=== PATIENT | male | born 1960 | race Caucasian/White ===

== ENCOUNTER 2020-11-23 11:19 | Day surgery (SDC) | payer BC ==
[2020-11-23] VITALS (8 sets, daily range): BP systolic 114–145; BP diastolic 63–80
[~2020-11-23] VITALS: Ht 177.8 cm; Wt 88.5 kg
[2020-11-23] MEDS ORDERED: normal saline 1,000 ML IV SCH (11:50)
[2020-11-23] MEDS ORDERED: diphenhydrAMINE 25mg capsule PO PRN (11:50)
[2020-11-23 12:23] LABS: ANION GAP 8 (8-16); BLOOD UREA NITROGEN 20 MG/DL (7-18); BUN/CREATININE RATIO 19.8 (5.4-32.0); CALCIUM 9.1 MG/DL (8.5-10.1); CHLORIDE 105 MMOL/L (99-107); CREATININE 1.01 MG/DL (0.60-1.10); GLUCOSE 183 MG/DL (70-104); MAGNESIUM 2.3 MG/DL (1.5-2.4); POTASSIUM 4.2 MMOL/L (3.5-5.1); SODIUM 140 MMOL/L (135-145); TOTAL CARBON DIOXIDE 27.3 MMOL/L (24-32); eGFR 75 ML/MIN
[2020-11-23] MEDS ORDERED: CLOP75TA34 PO (12:27)
[2020-11-23] MEDS ORDERED: INSU100V9 SUBCUT (12:27)
[2020-11-23] MEDS ORDERED: INSU100V11 SUBCUT (12:27)
[2020-11-23] MEDS ORDERED: ROSU40TA22 PO (12:27)
[2020-11-23] MEDS ORDERED: AMLO5TAB16 PO (12:27)
[2020-11-23] MEDS ORDERED: LOSA50TA64 PO (12:27)
[2020-11-23] MEDS ORDERED: SPIR25TA5 PO (12:27)
[2020-11-23] MEDS ORDERED: ASPI-1265 PO (12:29)
[2020-11-23] MEDS ORDERED: NIA500ERT PO (12:29)
[2020-11-23 12:39] LABS: BASOPHILS % (AUTO) 0.8 % (0-1); EOSINOPHILS # (AUTO) 0.1 X10'3 (0-0.9); EOSINOPHILS % (AUTO) 1.8 % (0-6); HEMATOCRIT 45.6 % (42.0-52.0); HEMOGLOBIN 15.5 g/dl (14.0-17.9); LYMPHOCYTES # (AUTO) 1.3 X10'3 (1.1-4.8); LYMPHOCYTES % (AUTO) 22.6 % (21-51); MEAN CORPUSCULAR HEMOGLOBIN 31.5 PG (27.0-31.0); MEAN CORPUSCULAR HGB CONC 34.1 g/dL (33.0-36.5); MEAN CORPUSCULAR VOLUME 92.4 FL (78-98); MEAN PLATELET VOLUME 7.7 FL (7.4-10.4); MONOCYTES # (AUTO) 0.7 X10'3 (0-0.9); MONOCYTES % (AUTO) 11.9 % (2-12); NEUTROPHILS # (AUTO) 3.6 X10'3 (1.8-7.7); NEUTROPHILS % (AUTO) 62.9 % (42-75); PLATELET COUNT 277 X10'3 (140-440); RED BLOOD COUNT 4.93 X10'6 (4.70-6.10); RED CELL DISTRIBUTION WIDTH 12.4 % (11.5-14.5); WHITE BLOOD COUNT 5.7 X10'3 (4.5-11.0)
[2020-11-23] MEDS ORDERED: midazolam 1 mg/ML 2ml injection ONE ×2 (14:27→14:51)
[2020-11-23] MEDS ORDERED: fentaNYL/PF 50MCG/1 ML 2ML syringe ONE (14:27)
[2020-11-23] MEDS ORDERED: iohexol 350MG/ML 100ml bottle IV ONE (14:28)
[2020-11-23] MEDS ORDERED: iohexol 350 MG/ML 50ML vial IV ONE (14:28)
[2020-11-23] MEDS ORDERED: heparin 1,000unit/ml 10ml vial 10 ML ONE (14:28)
[2020-11-23] MEDS ORDERED: LIDOcaine 1% (10mg/ml)w/preservative injection 20ml MDV ONE (14:28)
[2020-11-23] MEDS ORDERED: acetaminophen 325mg tablet PO PRN (16:10)
[2020-11-23] MEDS ORDERED: ondansetron/PF 4mg/2ml inj IV PRN (16:10)
[2020-11-23] MEDS ORDERED: proCHLORperazine 10 MG/2 ml inj IV PRN (16:10)
[2020-11-23] MEDS ORDERED: HYDROcodone/acetaminophen 5mg/325mg tablet PO PRN (16:10)
[2020-11-23] MEDS ORDERED: HYDROcodone/acetaminophen 10/325mg tab PO PRN (16:10)
[2020-11-23] MEDS ORDERED: normal saline 1000ml 1,000 ML IV SCH (16:10)
== END 2020-11-23 18:50 | disposition home or self-care (01) ==
LOC: SSTAY O 11:19
PROVIDERS: ATTEND Internal Medicine Cardiovascular Disease
DX: R94.39 Abnormal result of other cardiovascular function study (principal); R07.9 Chest pain, unspecified; I25.10 Atherosclerotic heart disease of native coronary artery without angina pectoris; E10.9 Type 1 diabetes mellitus without complications; I10 Essential (primary) hypertension; E78.49 Other hyperlipidemia; I27.20 Pulmonary hypertension, unspecified; Z98.890 Other specified postprocedural states; Z79.899 Other long term (current) drug therapy; Z72.89 Other problems related to lifestyle; Z79.01 Long term (current) use of anticoagulants; Z79.4 Long term (current) use of insulin; Z79.82 Long term (current) use of aspirin; Z95.5 Presence of coronary angioplasty implant and graft; Z82.49 Family history of ischemic heart disease and other diseases of the circulatory system
CPT/HCPCS: 36415; 80048; 82948; 83735; 85025; 85610; 93005; 93458; 99152; 99153; C1760; C1769; C1894; J1644; J2001; J2250; J3010; Q0163; Q9967; A4620; A6258

== ENCOUNTER 2020-12-17 08:00 | Inpatient (IN) | payer BC ==
[2020-12-11 16:02] LABS: CLARITY,URINE CLEAR (Clear); COLOR,URINE STRAW (Yellow); GLUCOSE, URINE 250 mg/dl (Neg); LEUKOCYTE ESTERASE ,URINE NEGATIVE (Neg); NITRITES, URINE NEGATIVE (Neg); OCCULT BLOOD,URINE NEGATIVE (Neg); PROTEIN,URINE TRACE mg/dl (Neg); UA COLLECTION TYPE CLN CATCH MIDSTREAM; UROBILINOGEN,URINE 0.2 E.U/dL (0.2-1.0)
[2020-12-11 16:03] LABS: KETONES,URINE 15 mg/dl (Neg)
[2020-12-11 16:06] LABS: BACTERIA,URINE NONE SEEN /HPF (Neg); MUCUS STRANDS NONE SEEN /LPF (Neg); RBC,URINE NONE SEEN /HPF (0-2); SQUAMOUS EPITHELIAL CELL,UR FEW /LPF (FEW); WBC,URINE NONE SEEN /HPF (0-4)
[2020-12-11 16:09] LABS: BASOPHILS % (AUTO) 0.6 % (0-1); EOSINOPHILS # (AUTO) 0.1 X10'3 (0-0.9); EOSINOPHILS % (AUTO) 1.4 % (0-6); LYMPHOCYTES # (AUTO) 1.4 X10'3 (1.1-4.8); MEAN CORPUSCULAR HEMOGLOBIN 32.2 PG (27.0-31.0); MEAN CORPUSCULAR HGB CONC 35.4 g/dL (33.0-36.5); MEAN CORPUSCULAR VOLUME 90.9 FL (78-98); MEAN PLATELET VOLUME 7.5 FL (7.4-10.4); MONOCYTES # (AUTO) 0.6 X10'3 (0-0.9); MONOCYTES % (AUTO) 8.3 % (2-12); NEUTROPHILS # (AUTO) 4.6 X10'3 (1.8-7.7); NEUTROPHILS % (AUTO) 68.7 % (42-75); PRE OP HEMATOCRIT 44.6 % (42.0-52.0); PRE OP HEMOGLOBIN 15.8 g/dL (14.0-17.9); PRE OP PLATELET COUNT 319 X10'3 (140-440); RED BLOOD COUNT 4.91 X10'6 (4.70-6.10); RED CELL DISTRIBUTION WIDTH 12.2 % (11.5-14.5)
[2020-12-11 16:14] LABS: ALBUMIN 4.3 G/DL (3.4-5.0); ALBUMIN/GLOBULIN RATIO 1.2 (1.1-1.5); ALKALINE PHOSPHATASE 69 IU/L (46-116); BLOOD UREA NITROGEN 16 MG/DL (7-18); BUN/CREATININE RATIO 16.5 (5.4-32.0); CALCIUM 9.1 MG/DL (8.5-10.1); CHLORIDE 102 MMOL/L (99-107); CREATININE 0.97 MG/DL (0.60-1.10); PRE OP ALT 69 U/L (30-65); PRE OP ANION GAP 11 (8-16); PRE OP AST 32 U/L (10-37); PRE OP BILIRUB, TOTAL 0.6 MG/DL (0.0-1.0); PRE OP POTASSIUM 4.1 MMOL/L (3.4-5.1); PRE OP SODIUM 140 MMOL/L (135-145); TOTAL CARBON DIOXIDE 27.5 MMOL/L (24-32); TOTAL PROTEIN 7.8 G/DL (6.4-8.2); eGFR 78 ML/MIN
[2020-12-11 16:15] LABS: PRE OP GLUCOSE 208 MG/DL (70-104)
[2020-12-11 16:27] LABS: HEMOGLOBIN A1C 9.4 % (4.5-6.2)
[2020-12-14 06:24] LABS: ABG BASE EXCESS -2.5 mmol/L (-2.0-2.0); ABG HCO3 21.5 mmol/L (22.0-26.0); ABG OXYGEN SATURATION 95.7 % (94-97); ABG PCO2 (T) 35.4 mmHg (35.0-48.0); ABG PO2 (T) 77.2 mmHg (75.0-100.0); ALLEN'S TEST POSITIVE; FCOHb 0.4 % (0.0-3.9); FMetHb 0.3 % (0.0-1.5); TOTAL HEMOGLOBIN 16.1 G/dl (14.0-18.0)
[2020-12-17] VITALS (8 sets, daily range): BP systolic 95–152; BP diastolic 44–75
[~2020-12-17] VITALS: Ht 177.8 cm; Wt 90.1 kg
[~2020-12-17 08:00] MED LIST: AMLO5TAB16 PO; ASPI-1265 PO; BUPIVAcaine 0.5% inj/PF 30 ML ONE; CLOP75TA34 PO; INSU100V11 SUBCUT; INSU100V9 SUBCUT; LIDOcaine 1% (10mg/ml) 2ml vial ONE; LOSA50TA64 PO; NIA500ERT PO; ROSU40TA22 PO; SPIR25TA5 PO; VANCOMYCIN 1,500MG inj. 1,500 MG in normal saline 500ml IV soln 300 ML IV ONE; ceFAZolin 1000mg inj ONE; cefazolin/dext.iso 2gm/50ml 50 ML IV ONE; epiNEPHrine 1 mg/ml inj ONE; famotidine 20mg tablet PO ONE; gabapentin 400mg capsule PO ONE; metoprolol tartrate 12.5mg (1/2 tablet) PO ONE; mupirocin 2% nasal ointment 1gm UD NS ONE; ringers solution, lacted 1,000 ML IV SCH
[2020-12-17] MEDS ORDERED: heparin 10,000 units/1 ML INJ ONE ×3 (09:00→15:30)
[2020-12-17] MEDS ORDERED: papaverine 30 mg/ml 2ml inj. ONE (09:00)
[2020-12-17] MEDS ORDERED: ceFAZolin 1000mg inj ONE (12:31)
[2020-12-17] MEDS ORDERED: epiNEPHrine 1 mg/ml inj ONE (12:31)
[2020-12-17] MEDS ORDERED: LORazepam 2 mg/ml vial ONE (12:32)
[2020-12-17] MEDS ORDERED: gabapentin 400mg capsule PO ONE (12:34)
[2020-12-17] MEDS ORDERED: metoprolol tartrate 12.5mg (1/2 tablet) PO ONE (12:34)
[2020-12-17] MEDS ORDERED: cefazolin/dext.iso 2gm/50ml 50 ML IV ONE (12:35)
[2020-12-17] MEDS ORDERED: mupirocin 2% nasal ointment 1gm UD NS ONE (12:35)
[2020-12-17] MEDS ORDERED: LORazepam 2 mg/ml vial IV PRN (12:39)
[2020-12-17] MEDS ORDERED: dextrose 50%-water 50ml dispensing syringe IV PRN ×2 (12:40→18:00)
[2020-12-17] MEDS ORDERED: VANCOMYCIN 1,500MG inj. 1,500 MG in normal saline 500ml IV soln 300 ML IV ONE (12:40)
[2020-12-17] MEDS ORDERED: Insulin Reg/NS 100units/100mL 100 ML IV SCH ×2 (12:56→18:00)
[2020-12-17] MEDS ORDERED: insulin regular, human 10 units/0.1 ml syringe IV ONE (13:00)
[2020-12-17] MEDS: Insulin Reg/NS 100units/100mL 100 ML IV SCH (13:08)
[2020-12-17] MEDS ORDERED: ipratropium/albuterol 3ml nebule IH PRN (13:55)
[2020-12-17] MEDS ORDERED: heparin 10,000 units/1 ML INJ IR ONE (14:00)
[2020-12-17] MEDS ORDERED: SUFENTANIL CITRATE 50 MCG/ML 2ml ampule IV ONE (14:11)
[2020-12-17] MEDS ORDERED: papaverine 30 mg/ml 2ml inj. IA ONE (14:30)
[2020-12-17] MEDS ORDERED: propofol inj 20 ML IV ONE (15:00)
[2020-12-17] MEDS ORDERED: LIDOcaine 2% (20mg/ml) 5ml vial ONE (15:00)
[2020-12-17 15:28] LABS: ABG BASE EXCESS -1.5 mmol/L (-2.0-2.0); ABG HCO3 20.5 mmol/L (22.0-26.0); ABG OXYGEN SATURATION 99.7 % (94-97); ABG PCO2 27.6 mmHg (35.0-48.0); ABG PO2 409.4 mmHg (75.0-100.0); CL (ABG) 105 mmol/L (98-110); FCOHb 0.6 % (0.0-3.9); FMetHb 0.3 % (0.0-1.5); FO2Hb 98.8 % (94-97); GLUCOSE (ABG) 121 mg/dl (70-105); IONIZED CA (ABG) 1.16 mmol/L (1.10-1.43); K (ABG) 3.9 mmol/L (3.5-5.0); TOTAL HEMOGLOBIN 13.6 G/dl (14.0-18.0)
[2020-12-17] MEDS ORDERED: albumin (human) 25% 100 ML IV solution IV ONE (15:30)
[2020-12-17] MEDS ORDERED: methylPREDNISolone sod succ 1000mg vial ONE (15:30)
[2020-12-17] MEDS ORDERED: NORepinephrine 8 MG in NS 250 ML BAG (32 mcg/ml) IV ONE (15:30)
[2020-12-17] MEDS ORDERED: sodium bicarbonate (8.4%) 1 mEq/ml syringe ONE (15:30)
[2020-12-17] MEDS ORDERED: calcium chloride 100 MG/1 ML inj IV ONE (15:30)
[2020-12-17] MEDS ORDERED: aminocaproic acid 250 MG/1 ML inj. ONE (15:30)
[2020-12-17] MEDS ORDERED: albumin (Human) 5% 250ml 250 ML IV ONE (15:57)
[2020-12-17] MEDS ORDERED: rocuronium 10mg/ml inj IV ONE ×2 (15:58)
[2020-12-17 16:11] LABS: ABG BASE EXCESS VENOUS 1.8 mmol/L (-2.0 - 2.0); ABG HCO3 VENOUS 26.2 mmol/L (21.0-28.0); ABG PCO2 VENOUS 40.1 mmHg (41.0-54.0); ABG PO2 VENOUS 40.4 mmHg (25.0-35.0); CL (ABG) 101 mmol/L (98-110); FCOHb VENOUS 0.3 %; FHHb VENOUS 22.5 %; FMetHb VENOUS 0.3 % (0.0 - 0.5); FO2Hb VENOUS 76.9 %; GLUCOSE (ABG) 90 mg/dl (70-105); IONIZED CA (ABG) 0.97 mmol/L (1.10-1.43); K (ABG) 3.5 mmol/L (3.5-5.0); TOTAL HEMOGLOBIN 9.6 G/dl (14.0-18.0)
[2020-12-17 16:16] LABS: ABG BASE EXCESS 3.2 mmol/L (-2.0-2.0); ABG HCO3 27.5 mmol/L (22.0-26.0); ABG OXYGEN SATURATION 99.2 % (94-97); ABG PCO2 41.1 mmHg (35.0-48.0); ABG PO2 396.6 mmHg (75.0-100.0); CL (ABG) 102 mmol/L (98-110); FCOHb 0.3 % (0.0-3.9); FMetHb 0.3 % (0.0-1.5); FO2Hb 98.6 % (94-97); GLUCOSE (ABG) 96 mg/dl (70-105); IONIZED CA (ABG) 1.01 mmol/L (1.10-1.43); K (ABG) 3.6 mmol/L (3.5-5.0); TOTAL HEMOGLOBIN 10.1 G/dl (14.0-18.0)
[2020-12-17 16:43] LABS: ABG BASE EXCESS 0.8 mmol/L (-2.0-2.0); ABG HCO3 25.9 mmol/L (22.0-26.0); ABG OXYGEN SATURATION 99.1 % (94-97); ABG PCO2 43.3 mmHg (35.0-48.0); CL (ABG) 103 mmol/L (98-110); FCOHb 0.1 % (0.0-3.9); FMetHb 0.3 % (0.0-1.5); FO2Hb 98.7 % (94-97); GLUCOSE (ABG) 90 mg/dl (70-105); IONIZED CA (ABG) 1.11 mmol/L (1.10-1.43); K (ABG) 3.9 mmol/L (3.5-5.0); TOTAL HEMOGLOBIN 11.3 G/dl (14.0-18.0)
[2020-12-17 17:12] LABS: ABG BASE EXCESS 2.5 mmol/L (-2.0-2.0); ABG HCO3 27.3 mmol/L (22.0-26.0); ABG OXYGEN SATURATION 98.9 % (94-97); ABG PCO2 43.2 mmHg (35.0-48.0); CL (ABG) 101 mmol/L (98-110); FCOHb 0.3 % (0.0-3.9); FMetHb 0.3 % (0.0-1.5); FO2Hb 98.3 % (94-97); GLUCOSE (ABG) 83 mg/dl (70-105); IONIZED CA (ABG) 1.06 mmol/L (1.10-1.43); K (ABG) 3.6 mmol/L (3.5-5.0); TOTAL HEMOGLOBIN 10.7 G/dl (14.0-18.0)
[2020-12-17 17:53] LABS: ABG BASE EXCESS VENOUS 0.8 mmol/L (-2.0 - 2.0); ABG HCO3 VENOUS 23.4 mmol/L (21.0-28.0); ABG PCO2 VENOUS 31.1 mmHg (41.0-54.0); CL (ABG) 105 mmol/L (98-110); FCOHb VENOUS 0.3 %; FMetHb VENOUS 0.3 % (0.0 - 0.5); FO2Hb VENOUS 97.4 %; GLUCOSE (ABG) 80 mg/dl (70-105); IONIZED CA (ABG) 1.21 mmol/L (1.10-1.43); K (ABG) 3.6 mmol/L (3.5-5.0); TOTAL HEMOGLOBIN 11.2 G/dl (14.0-18.0)
[2020-12-17 17:56] LABS: ACTIVATED CLOTTING TIME 126 SEC (101-148)
[2020-12-17] MEDS ORDERED: bisacodyl 10mg suppository rectal RC PRN (18:00)
[2020-12-17] MEDS ORDERED: mineral oil 133ml enema RC PRN (18:00)
[2020-12-17] MEDS ORDERED: HYDROcodone/acetaminophen 10/325mg tab PO PRN (18:00)
[2020-12-17] MEDS ORDERED: magnesium 4gm in 100ml NS 100 ML IV PRN (18:00)
[2020-12-17] MEDS ORDERED: morphine 4 MG/ML inj SYRINge IV PRN ×2 (18:00)
[2020-12-17] MEDS ORDERED: Neutra Phos packet PO PRN (18:00)
[2020-12-17] MEDS ORDERED: potassium Cl 40MEQ/1/2NS 520ml 520 ML IV PRN (18:00)
[2020-12-17] MEDS ORDERED: sodium phosphate inj. 15 MMOL in dextrose 5%-water 250 ML IV PRN (18:00)
[2020-12-17] MEDS ORDERED: potassium Cl 20 mEq SR tablet PO PRN (18:00)
[2020-12-17] MEDS ORDERED: potassium Cl 40MEQ/250ML bag 250 ML IV PRN (18:00)
[2020-12-17] MEDS ORDERED: magnesium hydroxide 30ml (MOM) UD suspension PO PRN (18:00)
[2020-12-17] MEDS: sodium chloride 0.45% 1,000 ML IV SCH (18:00)
[2020-12-17] MEDS ORDERED: nitroGLYCERIN-Tridil 50MG/D5W 250 ML IV SCH (18:00)
[2020-12-17] MEDS ORDERED: NORepinephrine 8mg/ 250ml NS 250 ML IV PRN (18:00)
[2020-12-17] MEDS ORDERED: ondansetron/PF 4mg/2ml inj IV PRN (18:00)
[2020-12-17] MEDS ORDERED: acetaminophen 325mg tablet PO PRN ×2 (18:00)
[2020-12-17] MEDS ORDERED: sodium phosphate inj. 30 MMOL in dextrose 5%-water 250 ML IV PRN (18:00)
[2020-12-17] MEDS ORDERED: pantoprazole 40 MG vial IV ONE (18:00)
[2020-12-17] MEDS ORDERED: metoclopramide 5 mg/ml inj IV PRN (18:00)
[2020-12-17] MEDS ORDERED: insulin glargine (Lantus) pen - multi-dose SQ PRN (18:00)
[2020-12-17] MEDS ORDERED: potassium CL 10mEq/100ml bag 100 ML IV PRN (18:00)
[2020-12-17] MEDS ORDERED: magnesium 2GM in 50ml NS 50 ML IV PRN (18:00)
[2020-12-17] MEDS ORDERED: magnesium citrate 296ml oral solution PO PRN (18:00)
[2020-12-17] MEDS ORDERED: niCARDipine-NS 40mg/200ml IVPB 200 ML IV PRN (18:00)
[2020-12-17 18:49] LABS: ABG BASE EXCESS -0.6 mmol/L (-2.0-2.0); ABG HCO3 21.8 mmol/L (22.0-26.0); ABG OXYGEN SATURATION 98.6 % (94-97); ABG PCO2 (T) 27.6 mmHg (35.0-48.0); ABG PO2 (T) 212.4 mmHg (75.0-100.0); FCOHb 0.3 % (0.0-3.9); FMetHb 0.3 % (0.0-1.5); PATIENT TEMPERATURE 35.8; PEEP 5 cm H2O; RESPIRATORY RATE 12 b/min; TIDAL VOLUME 650 mL; TOTAL HEMOGLOBIN 11.7 G/dl (14.0-18.0)
[2020-12-17 18:54] LABS: WHITE BLOOD COUNT 9.6 X10'3 (4.5-11.0)
[2020-12-17 18:55] LABS: BASOPHILS % (AUTO) 0.2 % (0-1); EOSINOPHILS # (AUTO) 0.1 X10'3 (0-0.9); EOSINOPHILS % (AUTO) 0.7 % (0-6); HEMATOCRIT 31.1 % (42.0-52.0); LYMPHOCYTES # (AUTO) 0.6 X10'3 (1.1-4.8); LYMPHOCYTES % (AUTO) 5.9 % (21-51); MEAN CORPUSCULAR HGB CONC 35.5 g/dL (33.0-36.5); MEAN CORPUSCULAR VOLUME 90.1 FL (78-98); MEAN PLATELET VOLUME 7.7 FL (7.4-10.4); MONOCYTES # (AUTO) 0.5 X10'3 (0-0.9); MONOCYTES % (AUTO) 5.1 % (2-12); NEUTROPHILS # (AUTO) 8.4 X10'3 (1.8-7.7); NEUTROPHILS % (AUTO) 88.1 % (42-75); PLATELET COUNT 170 X10'3 (140-440); RED BLOOD COUNT 3.45 X10'6 (4.70-6.10)
[2020-12-17 18:58] LABS: ALANINE AMINOTRANSFERASE 43 U/L (12-78); ALBUMIN 2.9 G/DL (3.4-5.0); ALBUMIN/GLOBULIN RATIO 1.5 (1.1-1.5); ALKALINE PHOSPHATASE 38 IU/L (46-116); ANION GAP 7 (8-16); ASPARTATE AMINO TRANSFERASE 33 U/L (10-37); BILIRUBIN,TOTAL 0.5 MG/DL (0.1-1.0); BLOOD UREA NITROGEN 11 MG/DL (7-18); BUN/CREATININE RATIO 13.9 (5.4-32.0); CHLORIDE 110 MMOL/L (99-107); CREATININE 0.79 MG/DL (0.60-1.10); GLUCOSE 93 MG/DL (70-104); PHOSPHORUS 2.2 MG/DL (2.3-4.5); POTASSIUM 3.6 MMOL/L (3.5-5.1); SODIUM 142 MMOL/L (135-145); TOTAL CARBON DIOXIDE 25.2 MMOL/L (24-32); TOTAL PROTEIN 4.9 G/DL (6.4-8.2); eGFR > 90 ML/MIN
[2020-12-17] MEDS: albumin (Human) 5% 250ml 250 ML IV PRN ×3 (19:10→23:15)
[2020-12-17 19:47] LABS: PARTIAL THROMBOPLASTIN TIME 32 SECONDS (22-32)
[2020-12-17] MEDS: sennosides/docusate sodium tablet PO SCH (20:00)
[2020-12-17] MEDS: mupirocin 2% nasal ointment 1gm UD NS SCH (20:00)
[2020-12-17] MEDS: vancomycin/NS 1 GM ADD-VANTAGE 250 ML IV SCH (20:23)
[2020-12-17] MEDS: potassium Cl 20mEq/100mL bag 100 ML IV PRN ×2 (20:47→22:59)
[2020-12-17] MEDS: atorvastatin 10mg tablet PO SCH (21:00)
[2020-12-17] MEDS: gabapentin 300mg capsule PO SCH (21:00)
[2020-12-17] MEDS ORDERED: potassium phosphate inj 15 MMOL in normal saline 250ml IV soln 250 ML IV ONE (21:45)
[2020-12-17] MEDS ORDERED: potassium phosphate inj 30 MMOL in normal saline 500ml IV soln 500 ML IV ONE (21:45)
[2020-12-18] VITALS (25 sets, daily range): BP systolic 95–125; BP diastolic 39–63
[2020-12-18] MEDS: ceFAZolin/D5W- 1GM premix 50 ML IV SCH ×3 (00:12→15:56)
[2020-12-18 01:19] LABS: BASOPHILS % (AUTO) 0.1 % (0-1); EOSINOPHILS % (AUTO) 0 % (0-6); HEMATOCRIT 27.7 % (42.0-52.0); HEMOGLOBIN 9.8 g/dl (14.0-17.9); LYMPHOCYTES # (AUTO) 0.3 X10'3 (1.1-4.8); LYMPHOCYTES % (AUTO) 2.9 % (21-51); MEAN CORPUSCULAR HEMOGLOBIN 31.8 PG (27.0-31.0); MEAN CORPUSCULAR HGB CONC 35.2 g/dL (33.0-36.5); MEAN CORPUSCULAR VOLUME 90.4 FL (78-98); MEAN PLATELET VOLUME 7.8 FL (7.4-10.4); MONOCYTES # (AUTO) 0.4 X10'3 (0-0.9); MONOCYTES % (AUTO) 3.9 % (2-12); NEUTROPHILS # (AUTO) 8.9 X10'3 (1.8-7.7); NEUTROPHILS % (AUTO) 93.1 % (42-75); PLATELET COUNT 167 X10'3 (140-440); RED BLOOD COUNT 3.07 X10'6 (4.70-6.10); RED CELL DISTRIBUTION WIDTH 12.1 % (11.5-14.5); WHITE BLOOD COUNT 9.6 X10'3 (4.5-11.0)
[2020-12-18 01:31] LABS: PARTIAL THROMBOPLASTIN TIME 37 SECONDS (22-32)
[2020-12-18 01:33] LABS: ALANINE AMINOTRANSFERASE 42 U/L (12-78); ALBUMIN 3.5 G/DL (3.4-5.0); ALBUMIN/GLOBULIN RATIO 1.8 (1.1-1.5); ALKALINE PHOSPHATASE 32 IU/L (46-116); ANION GAP 7 (8-16); ASPARTATE AMINO TRANSFERASE 31 U/L (10-37); BILIRUBIN,TOTAL 0.7 MG/DL (0.1-1.0); BLOOD UREA NITROGEN 15 MG/DL (7-18); BUN/CREATININE RATIO 15.2 (5.4-32.0); CALCIUM 7.8 MG/DL (8.5-10.1); CHLORIDE 110 MMOL/L (99-107); CREATININE 0.99 MG/DL (0.60-1.10); GLUCOSE 183 MG/DL (70-104); PHOSPHORUS 4.4 MG/DL (2.3-4.5); POTASSIUM 4.4 MMOL/L (3.5-5.1); SODIUM 141 MMOL/L (135-145); TOTAL CARBON DIOXIDE 24.1 MMOL/L (24-32); TOTAL PROTEIN 5.4 G/DL (6.4-8.2); eGFR 77 ML/MIN
[2020-12-18 02:44] LABS: ABG BASE EXCESS -3.9 mmol/L (-2.0-2.0); ABG HCO3 20.4 mmol/L (22.0-26.0); ABG OXYGEN SATURATION 96.9 % (94-97); ABG PCO2 (T) 34.8 mmHg (35.0-48.0); FCOHb 0.2 % (0.0-3.9); FMetHb 0.3 % (0.0-1.5); FO2Hb 96.4 % (94-97); PATIENT TEMPERATURE 37.5; PEEP 5 cm H2O; TOTAL HEMOGLOBIN 10.6 G/dl (14.0-18.0)
[2020-12-18] MEDS: sodium chloride 0.45% 1,000 ML IV SCH (04:35)
[2020-12-18] MEDS: metoprolol tartrate 12.5mg (1/2 tablet) PO SCH ×2 (08:00→20:52)
[2020-12-18] MEDS: albumin (Human) 5% 250ml 250 ML IV PRN (08:13)
[2020-12-18] MEDS: vancomycin/NS 1 GM ADD-VANTAGE 250 ML IV SCH ×2 (08:16→20:51)
[2020-12-18] MEDS: gabapentin 300mg capsule PO SCH ×3 (08:18→20:51)
[2020-12-18] MEDS: HYDROcodone/acetaminophen 10/325mg tab PO PRN (08:18)
[2020-12-18] MEDS: aspirin 325mg tablet, delayed-release (Ecotrin) PO SCH (08:18)
[2020-12-18] MEDS: sennosides/docusate sodium tablet PO SCH ×2 (08:19→20:51)
[2020-12-18] MEDS: mupirocin 2% nasal ointment 1gm UD NS SCH ×2 (08:19→20:52)
[2020-12-18] MEDS: Insulin Reg/NS 100units/100mL 100 ML IV SCH (08:48)
[2020-12-18] MEDS: insulin glargine (Lantus) pen - multi-dose SQ SCH ×2 (09:17→20:58)
[2020-12-18] MEDS: insulin Lispro (HumaLOG) vial - multi-dose SQ PRN ×2 (09:19→12:54)
--- NOTE | 2020-12-18 11:42 | NUR ---
DM/CABG Consult: Pt hx T1DM A1C 9.4 s/p CABGx5 this admit. Noted on NCS diet PO meals pending. RD d/w RN regarding carb controlled diet addition if MD agreeable given hx. Pt would benefit from DM/CABG eds once more appropriate post-op. Addendum: 12/18/20 at [address] Amended: Links added.
--- NOTE | 2020-12-18 13:30 | NUR ---
Decreased urine output noted; Amos GRIMALDO notified; no new orders at this time. Encourage PO fluid intake.
[2020-12-18] MEDS: insulin Lispro (HumaLOG) vial - multi-dose SQ SCH (17:45)
--- NOTE | 2020-12-18 18:36 | NUR ---
Problems reprioritized. Patient report given, questions answered & plan of care reviewed with Yoselin WISEMAN.
[2020-12-18] MEDS: atorvastatin 10mg tablet PO SCH (20:51)
[2020-12-19] VITALS (20 sets, daily range): BP systolic 99–129; BP diastolic 44–75
[2020-12-19 03:53] LABS: BASOPHILS % (AUTO) 0.1 % (0-1); EOSINOPHILS % (AUTO) 0 % (0-6); HEMATOCRIT 26.6 % (42.0-52.0); HEMOGLOBIN 9.3 g/dl (14.0-17.9); LYMPHOCYTES # (AUTO) 0.4 X10'3 (1.1-4.8); LYMPHOCYTES % (AUTO) 4.1 % (21-51); MEAN CORPUSCULAR HEMOGLOBIN 32.4 PG (27.0-31.0); MEAN CORPUSCULAR VOLUME 92.5 FL (78-98); MEAN PLATELET VOLUME 8.9 FL (7.4-10.4); MONOCYTES # (AUTO) 1.1 X10'3 (0-0.9); MONOCYTES % (AUTO) 11.2 % (2-12); NEUTROPHILS # (AUTO) 8.7 X10'3 (1.8-7.7); NEUTROPHILS % (AUTO) 84.6 % (42-75); PLATELET COUNT 145 X10'3 (140-440); RED BLOOD COUNT 2.88 X10'6 (4.70-6.10); RED CELL DISTRIBUTION WIDTH 11.9 % (11.5-14.5); WHITE BLOOD COUNT 10.2 X10'3 (4.5-11.0)
[2020-12-19] MEDS: Insulin Reg/NS 100units/100mL 100 ML IV SCH (03:58)
[2020-12-19 04:48] LABS: ALBUMIN 3.5 G/DL (3.4-5.0); ANION GAP 7 (8-16); BLOOD UREA NITROGEN 27 MG/DL (7-18); BUN/CREATININE RATIO 27.6 (5.4-32.0); CALCIUM 7.9 MG/DL (8.5-10.1); CHLORIDE 106 MMOL/L (99-107); CREATININE 0.98 MG/DL (0.60-1.10); GLUCOSE 266 MG/DL (70-104); POTASSIUM 5.1 MMOL/L (3.5-5.1); SODIUM 138 MMOL/L (135-145); TOTAL CARBON DIOXIDE 24.8 MMOL/L (24-32); eGFR 78 ML/MIN
[2020-12-19] MEDS ORDERED: insulin Lispro (HumaLOG) vial - multi-dose SQ SCH (06:50)
[2020-12-19] MEDS ORDERED: potassium CL 10mEq/100ml bag 100 ML IV PRN (07:20)
[2020-12-19] MEDS ORDERED: magnesium 2GM in 50ml NS 50 ML IV PRN (07:20)
[2020-12-19] MEDS ORDERED: potassium Cl 40MEQ/250ML bag 250 ML IV PRN (07:20)
[2020-12-19] MEDS ORDERED: potassium Cl 20 mEq SR tablet PO PRN (07:20)
[2020-12-19] MEDS ORDERED: magnesium 4gm in 100ml NS 100 ML IV PRN (07:20)
[2020-12-19] MEDS ORDERED: potassium Cl 40MEQ/1/2NS 520ml 520 ML IV PRN (07:20)
[2020-12-19] MEDS ORDERED: potassium Cl 20mEq/100mL bag 100 ML IV PRN (07:20)
[2020-12-19 07:46] LABS: MAGNESIUM 2.4 MG/DL (1.5-2.4); PHOSPHORUS 3.9 MG/DL (2.3-4.5)
[2020-12-19] MEDS: ceFAZolin/D5W- 1GM premix 50 ML IV SCH ×2 (07:47)
[2020-12-19] MEDS: mupirocin 2% nasal ointment 1gm UD NS SCH (07:47)
[2020-12-19] MEDS: pantoprazole 40mg Tablet.DR PO SCH (07:48)
[2020-12-19] MEDS: aspirin 325mg tablet, delayed-release (Ecotrin) PO SCH (07:48)
[2020-12-19] MEDS: metoprolol tartrate 12.5mg (1/2 tablet) PO SCH ×2 (07:49→22:18)
[2020-12-19] MEDS: sennosides/docusate sodium tablet PO SCH ×2 (07:49→22:18)
[2020-12-19] MEDS: gabapentin 300mg capsule PO SCH ×2 (07:50→13:09)
[2020-12-19] MEDS: insulin Lispro (HumaLOG) vial - multi-dose SQ SCH ×2 (07:57→13:08)
[2020-12-19] MEDS: insulin glargine (Lantus) pen - multi-dose SQ SCH ×2 (07:57→22:16)
[2020-12-19] MEDS: potassium Cl 20 mEq SR tablet PO SCH ×2 (07:58→22:19)
[2020-12-19] MEDS: magnesium Cl slow-release 64mg tablet PO SCH ×2 (07:59→22:18)
[2020-12-19] MEDS ORDERED: furosemide 40mg/4ml inj IV ONE (10:25)
--- NOTE | 2020-12-19 12:00 | NUR ---
Patient was found very crooked in bed attempting to get up by himself. Patient was educated on sternal precautions and concern for the patient's safety. Patient stated an understanding and claims he will use his call light from now on.
--- NOTE | 2020-12-19 14:17 | NUR ---
Nutrition consult: Pt seen at bedside for written and verbal CABG and DM nutrition therapy educations. Pt states he sees an MD yearly for DM management and reports checking his BG levels frequently with "high" results. Pt states he takes his insulin per rx without difficulties. Pt denies questions at this time. RD contact information provided. Pt endorses a good appetite and states he is getting full from meals, pending meal documentation in EMR. Pt agrees to Reid smoothie BID to assist with wound healing, ONS to be sent pending physician approval in EMR. Pt denies food allergies or difficulty chewing/swallowing. LBM this afternoon per pt report. D/w RN recommendation for CHO controlled diet in view of A1c and BG levels throughout LOS. Will continue to follow. Addendum: 12/19/20 at [address] Amended: Links added.
--- NOTE | 2020-12-19 16:05 | NUR ---
Patient transferred to room 3021 via wheelchair with x1 RN and x1 PCT. Patient alert, oriented and in no apparent distress at time of transfer. Patient specific medications sent with patient along with patient's chart. Patient was placed on a tele monitor prior to transfer. Patient only has his cell phone with him and that was transferred with him.
[2020-12-19] MEDS: JUVEN Smoothie Arginine/Glut./Ca2+Bmb (Juven 19.3pkt) 240ml cup PO SCH (17:30)
--- NOTE | 2020-12-19 18:20 | NUR ---
Patient in room PCU 3021. I have received report from IVONE Dumont and had the opportunity to ask questions and assume patient care. Patient was found on the floor earlier, bed alarm was place. Redirect patient to use call light, demonstrate understanding. Safety measures and comfort maintained. Will continue to monitor.
--- NOTE | 2020-12-19 21:30 | NUR ---
Patient BG 38, alert, oriented, orange juice was given tolerated well. No s/s of hypoglycemia noted. Will recheck in 15 mins.
--- NOTE | 2020-12-19 21:45 | NUR ---
BG 48 at this time, no s/s of hypoglycemia noted, orange juice given again with a turkey sandwich, tolerated well. Will recheck in 10-15 mins. Will continue to monitor.
--- NOTE | 2020-12-19 21:58 | NUR ---
BG 96, no s/s of hypoglycemia noted. Patient didn't ateSupervisor made aware, no Humalog insulin given. 30 units of Lantus was given. Safety measures and comfort maintained. Will continue to monitor. Addendum: 12/20/20 at 0652 by Carol Travis RN Patient only ate 25% of his dinner.
[2020-12-19] MEDS: atorvastatin 10mg tablet PO SCH (22:18)
[2020-12-20 03:00] VITALS: BP 122/54
[2020-12-20 06:00] VITALS: BP 117/55
[2020-12-20 06:36] LABS: BASOPHILS % (AUTO) 0.2 % (0-1); EOSINOPHILS % (AUTO) 0 % (0-6); HEMATOCRIT 26.2 % (42.0-52.0); HEMOGLOBIN 9.2 g/dl (14.0-17.9); LYMPHOCYTES # (AUTO) 0.9 X10'3 (1.1-4.8); LYMPHOCYTES % (AUTO) 10.6 % (21-51); MEAN CORPUSCULAR HEMOGLOBIN 32.3 PG (27.0-31.0); MEAN CORPUSCULAR HGB CONC 35.1 g/dL (33.0-36.5); MEAN CORPUSCULAR VOLUME 91.9 FL (78-98); MONOCYTES # (AUTO) 1.4 X10'3 (0-0.9); MONOCYTES % (AUTO) 16.8 % (2-12); NEUTROPHILS # (AUTO) 6.2 X10'3 (1.8-7.7); NEUTROPHILS % (AUTO) 72.4 % (42-75); PLATELET COUNT 145 X10'3 (140-440); RED BLOOD COUNT 2.85 X10'6 (4.70-6.10); RED CELL DISTRIBUTION WIDTH 12.3 % (11.5-14.5); WHITE BLOOD COUNT 8.5 X10'3 (4.5-11.0)
--- NOTE | 2020-12-20 06:41 | NUR ---
Problems reprioritized. Patient report given, questions answered & plan of care reviewed with IVONE Valero.
--- NOTE | 2020-12-20 06:45 | NUR ---
Patient in room PCU 3021. I have received report from Carol WISEMAN, and had the opportunity to ask questions and assume patient care.
[2020-12-20 06:58] LABS: ALBUMIN 3.1 G/DL (3.4-5.0); ANION GAP 9 (8-16); BLOOD UREA NITROGEN 37 MG/DL (7-18); BUN/CREATININE RATIO 35.2 (5.4-32.0); CALCIUM 7.9 MG/DL (8.5-10.1); CHLORIDE 107 MMOL/L (99-107); CREATININE 1.05 MG/DL (0.60-1.10); GLUCOSE 230 MG/DL (70-104); POTASSIUM 4.2 MMOL/L (3.5-5.1); SODIUM 143 MMOL/L (135-145); TOTAL CARBON DIOXIDE 27.5 MMOL/L (24-32); eGFR 72 ML/MIN
[2020-12-20] MEDS: JUVEN Smoothie Arginine/Glut./Ca2+Bmb (Juven 19.3pkt) 240ml cup PO SCH ×2 (07:30→17:40)
[2020-12-20 07:35] LABS: TOTAL CELLS COUNTED 100
[2020-12-20 07:37] LABS: PLATELET ESTIMATE NORMAL
[2020-12-20] MEDS: magnesium Cl slow-release 64mg tablet PO SCH ×2 (08:13→20:22)
[2020-12-20] MEDS: metoprolol tartrate 12.5mg (1/2 tablet) PO SCH ×2 (08:13→20:33)
[2020-12-20] MEDS: sennosides/docusate sodium tablet PO SCH ×2 (08:15→20:22)
[2020-12-20] MEDS: potassium Cl 20 mEq SR tablet PO SCH ×2 (08:15→20:00)
[2020-12-20] MEDS: pantoprazole 40mg Tablet.DR PO SCH (08:15)
[2020-12-20] MEDS: insulin Lispro (HumaLOG) vial - multi-dose SQ SCH ×2 (08:41→19:39)
[2020-12-20] MEDS: clopidogrel 75mg tablet PO SCH (08:43)
[2020-12-20] MEDS: aspirin 81mg, enteric-coated 1 TAB TABLET.DR PO SCH (08:44)
[2020-12-20 11:00] VITALS: BP 118/55
[2020-12-20] MEDS ORDERED: HYDR-3972 PO (12:10)
[2020-12-20] MEDS ORDERED: LOP12.5T PO (12:10)
[2020-12-20 15:00] VITALS: BP 131/58
--- NOTE | 2020-12-20 18:12 | NUR ---
Problems reprioritized. Patient report given, questions answered & plan of care reviewed with Carol WISEMAN, patient stable at transfer of care.
--- NOTE | 2020-12-20 18:13 | NUR ---
[place] documentation: I have reviewed and agree with all interventions, assessments performed and documented by Lourdes WISEMAN.
--- NOTE | 2020-12-20 18:15 | NUR ---
[place] Medication Administration: For this medication-pass time frame, all medication were reviewed, dispensed, administered and documented per hospital policy by Lourdes WISEMAN.
[2020-12-20 19:00] VITALS: BP 130/62
[2020-12-20] MEDS: atorvastatin 10mg tablet PO SCH (20:22)
[2020-12-20] MEDS: insulin glargine (Lantus) pen - multi-dose SQ SCH (20:42)
[2020-12-20 23:00] VITALS: BP 118/54
--- NOTE | 2020-12-21 02:55 | NUR ---
Patient feeling lightheaded, checked BG 51, milk given tolerated well, no juice were available. Will recheck in 15 mins.
[2020-12-21 03:00] VITALS: BP 109/68
--- NOTE | 2020-12-21 03:10 | NUR ---
BG 69 milk and sandwich given, tolerated well, no more feeling lightheaded at this time. Will continue to monitor and recheck BG in 15 mins.
--- NOTE | 2020-12-21 03:25 | NUR ---
BG 82 at this time, no s/s of hypoglycemia noted. Call light within reach. Safety measures and comfort provided. Will continue to monitor.
[2020-12-21 06:00] VITALS: BP 145/69
--- NOTE | 2020-12-21 06:35 | NUR ---
Problems reprioritized. Patient report given, questions answered & plan of care reviewed with Lourdes.
--- NOTE | 2020-12-21 06:35 | NUR ---
Patient in room PCU 3021. I have received report from Carol WISEMAN and had the opportunity to ask questions and assume patient care.
[2020-12-21 07:12] LABS: BASOPHILS % (AUTO) 0.2 % (0-1); EOSINOPHILS % (AUTO) 0.5 % (0-6); HEMATOCRIT 26.3 % (42.0-52.0); HEMOGLOBIN 9.3 g/dl (14.0-17.9); LYMPHOCYTES # (AUTO) 0.9 X10'3 (1.1-4.8); LYMPHOCYTES % (AUTO) 9.8 % (21-51); MEAN CORPUSCULAR HEMOGLOBIN 32.4 PG (27.0-31.0); MEAN CORPUSCULAR HGB CONC 35.5 g/dL (33.0-36.5); MEAN CORPUSCULAR VOLUME 91.2 FL (78-98); MEAN PLATELET VOLUME 8.9 FL (7.4-10.4); MONOCYTES # (AUTO) 1.2 X10'3 (0-0.9); MONOCYTES % (AUTO) 13.8 % (2-12); NEUTROPHILS # (AUTO) 6.6 X10'3 (1.8-7.7); NEUTROPHILS % (AUTO) 75.7 % (42-75); PLATELET COUNT 167 X10'3 (140-440); RED BLOOD COUNT 2.88 X10'6 (4.70-6.10); RED CELL DISTRIBUTION WIDTH 12.1 % (11.5-14.5); WHITE BLOOD COUNT 8.7 X10'3 (4.5-11.0)
[2020-12-21] MEDS: JUVEN Smoothie Arginine/Glut./Ca2+Bmb (Juven 19.3pkt) 240ml cup PO SCH ×2 (07:30→18:00)
[2020-12-21 07:41] LABS: ALBUMIN 2.7 G/DL (3.4-5.0); ANION GAP 9 (8-16); BLOOD UREA NITROGEN 24 MG/DL (7-18); BUN/CREATININE RATIO 26.1 (5.4-32.0); CALCIUM 7.7 MG/DL (8.5-10.1); CHLORIDE 104 MMOL/L (99-107); CREATININE 0.92 MG/DL (0.60-1.10); GLUCOSE 319 MG/DL (70-104); POTASSIUM 4.5 MMOL/L (3.5-5.1); SODIUM 139 MMOL/L (135-145); TOTAL CARBON DIOXIDE 26.3 MMOL/L (24-32); eGFR 83 ML/MIN
[2020-12-21] MEDS: pantoprazole 40mg Tablet.DR PO SCH (08:01)
[2020-12-21] MEDS: aspirin 81mg, enteric-coated 1 TAB TABLET.DR PO SCH (08:01)
[2020-12-21] MEDS: metoprolol tartrate 12.5mg (1/2 tablet) PO SCH ×2 (08:01→19:19)
[2020-12-21] MEDS: sennosides/docusate sodium tablet PO SCH ×2 (08:01→19:19)
[2020-12-21] MEDS: magnesium Cl slow-release 64mg tablet PO SCH ×2 (08:01→19:19)
[2020-12-21] MEDS: clopidogrel 75mg tablet PO SCH (08:02)
[2020-12-21] MEDS: potassium Cl 20 mEq SR tablet PO SCH ×2 (08:02→19:19)
[2020-12-21 08:20] LABS: ACT @ 1.70 U 275 SEC (193-297); ACT @ 2.84 U 418 SEC (260-420); BASELINE ACT 145 SEC (101-148); PATIENT WEIGHT 88.0k KG
[2020-12-21] MEDS: insulin Lispro (HumaLOG) vial - multi-dose SQ SCH ×2 (08:49→13:47)
[2020-12-21 11:00] VITALS: BP 122/61
--- NOTE | 2020-12-21 12:01 | NUR ---
O2 Sat at rest on room air:_94__% If below 89%: Recovery O2 Sat at rest on ___LPM:___%:___% via (mask/nasal cannula, etc..) No further documentation is necessary. If O2 Sat did not drop below 89% on room air,ambulate patient on room air. O2 Sat while ambulating on room air:__93_% Recovery O2 Sat while ambulating on ___LPM:___% No further documentation is necessary. If patient does not drop below 89% while ambulating, he/she does not qualify for home O2.
--- NOTE | 2020-12-21 12:58 | NUR ---
AGREE WITH AM ASSESSMENT BY PATSY WISEMAN.
--- NOTE | 2020-12-21 15:46 | NUR ---
Patient in room PCU 3021. I have received report from Lourdes WISEMAN and had the opportunity to ask questions and assume patient care.
[2020-12-21 18:00] VITALS: BP 136/55
[2020-12-21] MEDS: HYDROcodone/acetaminophen 10/325mg tab PO PRN (19:19)
[2020-12-21] MEDS: atorvastatin 10mg tablet PO SCH (20:48)
[2020-12-21] MEDS: insulin glargine (Lantus) pen - multi-dose SQ SCH (21:15)
[2020-12-21 22:00] VITALS: BP 125/60
[2020-12-22 02:00] VITALS: BP 131/65
--- NOTE | 2020-12-22 06:00 | NUR ---
Patient in room PCU 3021. I have received report from IVONE Lisa and had the opportunity to ask questions and assume patient care.
[2020-12-22 06:02] LABS: ALBUMIN 2.9 G/DL (3.4-5.0); ANION GAP 6 (8-16); BASOPHILS % (AUTO) 0.3 % (0-1); BLOOD UREA NITROGEN 20 MG/DL (7-18); BUN/CREATININE RATIO 21.5 (5.4-32.0); CALCIUM 8.2 MG/DL (8.5-10.1); CHLORIDE 104 MMOL/L (99-107); CREATININE 0.93 MG/DL (0.60-1.10); EOSINOPHILS # (AUTO) 0.2 X10'3 (0-0.9); EOSINOPHILS % (AUTO) 2.3 % (0-6); GLUCOSE 215 MG/DL (70-104); HEMATOCRIT 27.6 % (42.0-52.0); HEMOGLOBIN 9.7 g/dl (14.0-17.9); LYMPHOCYTES % (AUTO) 14.2 % (21-51); MEAN CORPUSCULAR HEMOGLOBIN 32.2 PG (27.0-31.0); MEAN CORPUSCULAR HGB CONC 35.2 g/dL (33.0-36.5); MEAN CORPUSCULAR VOLUME 91.5 FL (78-98); MEAN PLATELET VOLUME 8.2 FL (7.4-10.4); MONOCYTES # (AUTO) 0.9 X10'3 (0-0.9); MONOCYTES % (AUTO) 12.2 % (2-12); PLATELET COUNT 236 X10'3 (140-440); POTASSIUM 4.2 MMOL/L (3.5-5.1); RED BLOOD COUNT 3.02 X10'6 (4.70-6.10); RED CELL DISTRIBUTION WIDTH 12.4 % (11.5-14.5); SODIUM 140 MMOL/L (135-145); TOTAL CARBON DIOXIDE 29.9 MMOL/L (24-32); WHITE BLOOD COUNT 7.1 X10'3 (4.5-11.0); eGFR 82 ML/MIN
--- NOTE | 2020-12-22 06:16 | NUR ---
Problems reprioritized. Patient report given, questions answered & plan of care reviewed with Mary WISEMAN .
[2020-12-22 07:33] VITALS: BP 129/70
[2020-12-22] MEDS: aspirin 81mg, enteric-coated 1 TAB TABLET.DR PO SCH (08:24)
[2020-12-22] MEDS: clopidogrel 75mg tablet PO SCH (08:24)
[2020-12-22] MEDS: magnesium Cl slow-release 64mg tablet PO SCH ×2 (08:24→08:30)
[2020-12-22] MEDS: potassium Cl 20 mEq SR tablet PO SCH ×2 (08:24→08:29)
[2020-12-22] MEDS: JUVEN Smoothie Arginine/Glut./Ca2+Bmb (Juven 19.3pkt) 240ml cup PO SCH (08:24)
[2020-12-22 08:25] VITALS: BP_SYST 129
[2020-12-22] MEDS: sennosides/docusate sodium tablet PO SCH (08:25)
[2020-12-22] MEDS: pantoprazole 40mg Tablet.DR PO SCH (08:25)
[2020-12-22] MEDS: metoprolol tartrate 12.5mg (1/2 tablet) PO SCH (08:25)
[2020-12-22] MEDS: insulin Lispro (HumaLOG) vial - multi-dose SQ SCH (08:45)
[2020-12-22 09:02] LABS: MAGNESIUM 2.3 MG/DL (1.5-2.4)
[2020-12-22] MEDS ORDERED: LOP12.5T PO (09:11)
[2020-12-22] MEDS ORDERED: HYDR-3972 PO (09:11)
--- NOTE | 2020-12-22 09:49 | NUR ---
Pt discharged via wheelchair in stable condition. Iv dcd prior to discharge. Education provided at discharge. Discussed followup appointment. All questions answered. Prescriptions available for pickup at [facility] on [address].
== END 2020-12-22 09:40 | disposition home or self-care (01) | DRG 236 ==
LOC: PAS IN 11:28 → ICU 2S 16:59 → PCU 3S 12-19 15:31
PROVIDERS: ADMIT Thoracic Surgery (Cardiothoracic Vascular Surgery); ATTEND Thoracic Surgery (Cardiothoracic Vascular Surgery)
PROC: 021309W Bypass Coronary Artery, Four or More Arteries from Aorta with Autologous Venous Tissue, Open Approach (ICD-10-PCS; 2020-12-17)
PROC: 06BP4ZZ Excision of Right Saphenous Vein, Percutaneous Endoscopic Approach (ICD-10-PCS; 2020-12-17)
PROC: 02C00ZZ Extirpation of Matter from Coronary Artery, One Artery, Open Approach (ICD-10-PCS; 2020-12-17)
PROC: 5A1221Z Performance of Cardiac Output, Continuous (ICD-10-PCS; 2020-12-17)
PROC: B24BZZ4 Ultrasonography of Heart with Aorta, Transesophageal (ICD-10-PCS; 2020-12-17)
PROC: 02100Z9 Bypass Coronary Artery, One Artery from Left Internal Mammary, Open Approach (ICD-10-PCS; principal; 2020-12-17 14:50)
DX: I25.10 Atherosclerotic heart disease of native coronary artery without angina pectoris (principal); E11.9 Type 2 diabetes mellitus without complications; E78.5 Hyperlipidemia, unspecified; E87.70 Fluid overload, unspecified; I10 Essential (primary) hypertension; R68.2 Dry mouth, unspecified
CPT/HCPCS: 93312; 93325; Z7506; Z7508; 36415; 36600; 71045; 71046; 80048; 80053; 81001; 82330; 82435; 82803; 82947; 82948; 83036; 83735; 84100; 84132; 84295; 85007; 85018; 85025; 85347; 85384; 85610; 85730; 86885; 86900; 86901; 86920; 87070; 87081; 93005; 93880; 93971; 94002; 94010; 94668; 94760; 97110; 97116; 97161; 97530; A4618; A6258; A6449; A7000; A7048; C1751; C9113; G0378; J0171; J0690; J1644; J1815; J1940; J2001; J2060; J2150; J2440; J2704; J2930; J3370; J3475; J3480; J3490; J7030; J7040; J7050; J7120; P9045; P9047; U0003; U0005